=== PATIENT | male | born 1970 | race Caucasian/White ===

== ENCOUNTER 2019-08-07 14:29 | Emergency (ER) | payer BC, MEDICARE, OTHER ==
--- NOTE | 2019-08-07 15:00 | EDM.PDOC ---
ED HPI GENERAL MEDICAL PROBLEM - General Chief Complaint: Lower Extremity Injury/Pain Stated Complaint: RT CALF PAIN Time Seen by Provider: 08/07/19 14:31 Source of Information: Reports: Patient History Limitations: Reports: No Limitations - History of Present Illness INITIAL COMMENTS - FREE TEXT/NARRATIVE: HISTORY AND PHYSICAL: History of present illness: Patient is a 49-year-old male who presents to the ED today with concern of right calf pain. Patient states he stepped back and felt a "pull" in his right calf that radiates down to the end of his patella tendon. Patient states he has had some mild swelling of this area after the incident has had pain with walking. Patient denies any direct trauma or injury to the leg. Patient states he has not taken anything for his symptoms and denies any other symptoms or concerns. Patient denies fever, chills, chest pain, shortness of breath, or cough. Denies headache, neck stiff ness, change in vision, syncope, or near syncope. Denies nausea, vomiting, abdominal pain, diarrhea, constipation, or dysuria. Has not noted any blood in urine or stool. Patient has been eating and drinking appropriately. Review of systems: As per history of present illness and below otherwise all systems reviewed and negative. Past medical history: As per history of present illness and as reviewed below otherwise noncontributory. Surgical history: As per history of present illness and as reviewed below otherwise noncontributory. Social history: See social history for further information Family history: As per history of present illness and as reviewed below otherwise noncontributory. Physical exam: General: Patient is alert, oriented, and in no acute distress. Patient sitting comfortably on exam table. HEENT: Atraumatic, normocephalic, pupils equal and reactive bilaterally, negative for conjunctival pallor or scleral icterus, mucous membranes moist, TMs normal bilaterally, throat clear, neck supple, nontender, trachea midline. No drooling or trismus noted. No meningeal signs. No hot potato voice noted. Lungs: Clear to auscultation, breath sounds equal bilaterally, chest nontender. Heart: S1S2, regular rate and rhythm without overt murmur Abdomen: Soft, nondistended, nontender. Negative for masses or hepatosplenomegaly. Negative for costovertebral tenderness. Pelvis: Stable nontender. Genitourinary: Deferred. Rectal: Deferred. Skin: Intact, warm, dry. No lesions or rashes noted. Extremities: The right calf is mildly more edematous than the left. There is no erythema or warmth of the right calf. Patient does have mild tenderness to palpation of the Achilles tendon but Achilles tendon is intact. Patient has full range of motion of complete bilateral lower extremities with capillary refill less than 2 seconds. Dorsalis pedis and posterior tibial pulses are grossly intact bilaterally. Otherwise, atraumatic, negative for cords or calf pain. Neurovascular unremarkable. Neuro: Awake, alert, oriented. Cranial nerves II through XII unremarkable. Cerebellum unremarkable. Motor and sensory unremarkable throughout. Exam nonfocal. Notes: Discussed importance for follow-up with orthopedic provider. Voices understanding and is agreeable to plan of care. Denies any further questions or concerns at this time. Diagnostics: Tib-fib x-ray, venous Doppler ultrasound Therapeutics: None Prescription: None Impression: Right lower extremity pain / strain Plan: 1. Rest, ice, elevate the affected extremity. You can apply ice 15 minutes on, 15 minutes off. 2. Tylenol and/or Ibuprofen as directed for pain management or discomfort. 3. Follow up with the Orthopedic provider as discussed. Return to the ED as needed and as discussed. Definitive disposition and diagnosis as appropriate pending reevaluation and review of above. Right LE Pain Score (Numeric/FACES): 8 - Related Data Allergies Allergy/AdvReac Type Severity Reaction Status Date / Time No Known Allergies Allergy Verified 08/07/19 14:42 Home Meds: Home Meds Gabapentin [Neurontin] 600 mg PO TID 10/19/18 [History] Levothyroxine [Levothroid] 137 mcg PO DAILY 10/19/18 [History] Meloxicam 15 mg PO DAILY 10/19/18 [History] Omeprazole 40 mg PO BID 10/19/18 [History] Orphenadrine [Norflex] 100 mg PO BID PRN 10/19/18 [History] Prazosin HCl [Prazosin] 5 mg PO BEDTIME 10/19/18 [History] Simvastatin [Zocor] 40 mg PO BEDTIME 10/19/18 [History] Sucralfate 1 gm PO QID 10/19/18 [History] Vortioxetine Hydrobromide [Trintellix] 20 mg PO DAILY 10/19/18 [History] busPIRone [Buspar] 15 mg PO BID 10/19/18 [History] hydrOXYzine HCL [hydrOXYzine] 150 mg PO BEDTIME 10/19/18 [History] Past Medical History Cardiovascular History: Reports: High Cholesterol Gastrointestinal History: Reports: GERD Genitourinary History: Reports: Renal Calculus Musculoskeletal History: Reports: Back Pain, Chronic Psychiatric History: Reports: Addiction, Anxiety, Bipolar, Depression Endocrine/Metabolic History: Reports: Hypothyroidism - Infectious Disease History Infectious Disease History: Reports: Chicken Pox - Past Surgical History HEENT Surgical History: Reports: Adenoidectomy, Tonsillectomy Social & Family History - Tobacco Use Smoking Status *Q: Current Every Day Smoker Years of Tobacco use: 0 Packs/Tins Daily: 0 - Caffeine Use Caffeine Use: Reports: Coffee - Recreational Drug Use Recreational Drug Use: No Review of Systems - Review of Systems Review Of Systems: Comprehensive ROS is negative, except as noted in HPI. ED EXAM, GENERAL - Physical Exam Exam: See Below (see dictation) Course - Vital Signs Last Recorded V/S: Last Vital Signs Temp 96.3 F L 08/07/19 14:45 Pulse 65 08/07/19 14:45 Resp 16 08/07/19 14:45 BP 136/89 08/07/19 14:45 Pulse Ox 94 L 08/07/19 14:45 Departure - Departure Time of Disposition: 16:11 Disposition: Home, Self-Care 01 Clinical Impression: Lower extremity pain, right - Discharge Information Referrals: Libra Abraham, [employer] [Primary Care Provider] - Forms: ED Department Discharge Additional Instructions: The following information is given to patients seen in the emergency department who are being discharged to home. This information is to outline your options for follow-up care. We provide all patients seen in our emergency department with a follow-up referral. The need for follow-up, as well as the timing and circumstances, are variable depending upon the specifics of your emergency department visit. If you don't have a primary care physician on staff, we will provide you with a referral. We always advise you to contact your personal physician following an emergency department visit to inform them of the circumstance of the visit and for follow-up with them and/or the need for any referrals to a consulting specialist. The emergency department will also refer you to a specialist when appropriate. This referral assures that you have the opportunity for follow-up care with a specialist. All of these measure are taken in an effort to provide you with optimal care, which includes your follow-up. Under all circumstances we always encourage you to contact your private physician who remains a resource for coordinating your care. When calling for follow-up care, please make the office aware that this follow-up is from your recent emergency room visit. If for any reason you are refused follow-up, please contact the [facility] Emergency Department at and asked to speak to the emergency department charge nurse. [facility] Primary Care [address] [place] [id number] [facility] Specialty Care - Orthopedic Clinic Professional Building [address] [place] [address], [address] [place] [address] 1. Rest, ice, elevate the affected extremity. You can apply ice 15 minutes on, 15 minutes off. 2. Tylenol and/or Ibuprofen as directed for pain management or discomfort. 3. Follow up with the Orthopedic provider as discussed. Return to the ED as needed and as discussed. Sepsis Event Note - Evaluation Sepsis Screening Result: No Definite Risk - Focused Exam Vital Signs: Vital Signs Temp Pulse Resp BP Pulse Ox 08/07/19 14:45 96.3 F L 65 16 136/89 94 L Date Exam was Performed: 08/07/19 Time Exam was Performed: 16:10
--- NOTE | 2019-08-07 16:00 | US ---
Right lower extremity deep venous ultrasound: Duplex and color Doppler evaluation was obtained of the right common femoral, superficial femoral, popliteal, posterior tibial and peroneal veins. Left common femoral vein was also evaluated. Findings: Limited visualization of the peroneal veins and distal superficial femoral vein is noted on compression. Normal augmentation is seen through these veins with nothing seen to indicate venous thrombosis. Other vein show normal compression and Doppler blood flow. Impression: 1. Slightly limited study as noted above. 2. No evidence of deep venous thrombosis within the right lower extremity or within the left common femoral vein. Diagnostic code #2 This report was dictated in MDT
--- NOTE | 2019-08-07 16:06 | CR ---
Right tibia and fibula: AP and lateral views of the right tibia and fibula were obtained. Comparison: No previous exam. Spur noted off the plantar margin of the calcaneus as well as at the insertion of the Achilles tendon. Ankle mortise is symmetric. Joint spaces within the knee are not optimally seen but are felt to be grossly preserved. No acute fracture is seen. Spur is noted off the patella at the insertion of the quadriceps tendon and patellar ligament. No abnormal soft tissue opacities are seen. Impression: 1. Spurring as noted above. 2. Nothing acute is appreciated on 2 view right tibia and fibula exam. Diagnostic code #2 This report was dictated in MDT
== END 2019-08-07 16:20 | disposition home or self-care (01) ==
LOC: MW.ED 14:29
DX: S46.911A Strain of unspecified muscle, fascia and tendon at shoulder and upper arm level, right arm, initial encounter (principal); E78.00 Pure hypercholesterolemia, unspecified; K21.9 Gastro-esophageal reflux disease without esophagitis; F41.9 Anxiety disorder, unspecified; F32.9 Major depressive disorder, single episode, unspecified; E03.9 Hypothyroidism, unspecified; F17.210 Nicotine dependence, cigarettes, uncomplicated; Z79.899 Other long term (current) drug therapy; X58.XXXA Exposure to other specified factors, initial encounter
CPT/HCPCS: 73590-26-RT; 73590-RT; 93971-26-RT; 93971-RT; 99283; 99284-25